=== PATIENT | female | born 1970 | race Caucasian/White ===

== ENCOUNTER → 2017-04-28 | Outpatient (CLI) | payer OTHER ==
[~2017-04-28] MED LIST: EXCEDRIN CAPLE1 EACH; FAMVIR500 MG PO; GLUCOPHAGE XR500 MG; IBUPROFEN 600600 M1 PO; NAPROSYN500 MG; PERCOCET 5-3251 EACH PO; PREDNISONE 20 M20 M1 PO; VALIUM2 MG PO
== END ==
LOC: CAT 09:08
DX: R51 Headache (principal)